=== PATIENT | male | born 1940 | race Caucasian/White ===

== ENCOUNTER 2017-05-22 21:12 | Inpatient (IN) | payer MEDICARE ==
[~2017-05-22] VITALS: Ht 188 cm; Wt 68.0 kg
--- NOTE | ~2017-05-22 | CO ---
ADMIT: 05/22/2017 RM/LOC: 423 [facility] MR#: [id number] [address] [address] ELIZABETH RUVALCABA [address] [place] [address] Consultation SEX: M AGE: 76 : 1940 DATE OF CONSULTATION: 05/24/2017 ATTENDING PHYSICIAN: Xiomara Sanchez CONSULTING PHYSICIAN: Zeynep Hills MD REASON FOR CONSULTATION: Stroke alert. HISTORY OF PRESENT ILLNESS: Mr. Fahad Ruvalcaba is a 76-year-old gentleman who has been followed by the Teleneurology Service since May 22. He came into the hospital due to right-sided weakness involving the leg, more so than the arm and has since had a stroke workup revealing left-sided parietal infarct that was acute on MRI scan. His stroke evaluation included MRI of the brain that confirmed the left parietal infarct and echocardiogram with a normal EF and a positive bubble study. Ultrasound of the carotid artery without evidence of critical stenosis. He had been taking aspirin prior to his hospitalization and Plavix has been recommended for him as part of his secondary stroke prevention. He has been undergoing physical, occupational, and speech therapy in anticipation of rehab. This afternoon was noted to be more somnolent than usual. A stroke alert was called due to the decrease in his mental status, and he was taken for CAT scan of the brain which confirmed evolving stroke in the left parietal region concordant with the MRI scan of the brain. No acute hemorrhage was seen. The patient required Ativan for the CT scan and therefore on arrival back to the room and my examination, he was somnolent and unable to participate fully in the physical exam. PHYSICAL EXAMINATION: NIH Stroke Scale was performed and is limited due to the mental status but is as follows. 1. Level of consciousness. a. He required repeated stimulation to arouse. b. Unable to answer month and age correctly. c. Unable to perform or follow commands. 2. Ocular movements appeared normal. 3. No blink to threat and normal visual stephens. 4. There is no apparent facial asymmetry. 5. Generalized weakness in the bilateral upper extremities, right side has more tone than the left side. 6. No effort against gravity in the bilateral lower extremities. 7. Ataxia is unable to be tested. 8. Sensation appears to be normal as he withdraws. 9. Unable to assess language. 10.He does not speak. 11.No apparent extinction. The total NIH stroke scale of 21. Most of which is related to his decreased mental status. ASSESSMENT AND PLAN: A 76-year-old gentleman with left parietal infarct. Plan at this point would be to continue secondary stroke prevention as he is not a candidate for acute intervention for either t-PA or thrombectomy as he ADMIT: 05/22/2017 RM/LOC: 423 [facility] MR#: [id number] [address] [address] [place] [address] Consultation SEX: M AGE: 76 : 1940 had a stroke 2 days ago and therefore the contraindication. I recommend ruling out any metabolic derangements or infections given his poor mental status and his failed barium swallow with some aspiration. Secondary stroke prevention should continue with aspirin and Plavix. Holter monitoring was also recommended to rule out a cardiac source of the thrombus. He should have statin as well for secondary stroke prevention. Normotension and euglycemia is recommended as well. Ongoing physical, occupational, and speech therapy is also recommended, and he will likely need rehabilitation for his baseline right hemiparesis. Thank you very much for allowing us to participate in the care of this patient. No further inpatient Neurology recommendations at this point. If there are any other questions, please do not hesitate to call us back. Zeynep Hills MD/ cory JOB #: [id number] CC: Xiomara Sanchez, Attending Physician David Jiménez, Family Physician
--- NOTE | ~2017-05-22 | ECH ---
Transthoracic Echocardiography Report (TTE) Demographics Patient Name ELIZABETH PEDRO Date of Study 05/23/2017 Patient Number [id number] Visit Number [id number] Date of 1940 Room Number 423 Accession Number [id number] Gender Male Age 76 year(s) Referring Daniel Solano [employer] Seble Winston Physician RDCS Physician Interpreting King Humble Alejandra MD Mechanical Engineering Teacher Physician Supervising Ordering Physician Daniel Solano MD/REAP Nurse [employer] Teacher Conclusions Contractility Score Summary Normal Left Ventricular contractility was noted. Summary Technically adequate exam. The estimated left ventricular ejection fraction is 55-60%. The interatrial septum appears aneurysmal. Informed consent was obtained, bubble study was done, bubbles crossed to the left atrium suggesting a PFO or ASD. There is mild to moderate aortic regurgitation by color Doppler. The aortic root appears moderately dilated. The maximum diameter measures 4.6 cm. The ascending aorta appears moderately dilated. The maximum diameter measures 4.6 cm. Procedure Type of Study TTE procedure:Echo Complete SF. Procedure Date Date: 05/23/2017 Start: 11:30 AM Technical Quality: Adequate visualization Indications:CVA, Diabetes and Hypertension. Appropriate Use Criteria: 9 Height: 74 inches Weight: 182 pounds BSA: 2.09 m Rhythm: Sinus bradycardia HR: 89 bpm BP: 164/89 mmHg M-Mode/2D Measurements LV Diastolic Dimension: 5.41 cm LV Systolic Dimension: 4.7 cm LV Septum Diastolic: 0.67 cm LV PW Diastolic: 0.77 cm AO Root Dimension: 4.63 cm Cardiac Output: 9.37 l/min LA Dimension: 3.2 cm Cardiac Index: 4.48 l/min*m RV Diastolic Dimension: 3.05 cm LA volume index: 23 ml/m LVOT: 2.41 cm LVOT VTI: 23.09 cm RV Base: 2.4 cm LV Stroke volume: 105.28 ml RV Mid: 1.7 cm LV Stroke volume index: 50.37 ml/m TAPSE: 1.9 cm TDI-S': 11 cm/s Doppler Measurements AV Peak Velocity: 1.13 m/s MV Peak E-Wave: 1.11 m/s AV Peak Gradient: 5.1 mmHg AV Mean Gradient: 2.88 mmHg MV P1/2t: 35.8 msec LVOT Peak Velocity: 1.22 m/s AV Area (Continuity):4.6 cm AV P1/2t: 346.1 msec MV Area (PHT): 6.15 cm PV Peak Velocity: 0.75 m/s PV Peak Gradient: 2.24 mmHg E' Septal Velocity: 0.06 m/s A' Septal Velocity: 0.13 m/s E' Lateral Velocity: 0.06 m/s A' Lateral Velocity: 0.15 m/s RA Area: 9.01 cm Findings Left Ventricle Normal left ventricle size and function. Diastolic function indeterminate due to patient's arrhythmia. Right Ventricle Normal right ventricle structure and function. Left Atrium Normal left atrial size. The interatrial septum appears aneurysmal. Informed consent was obtained, bubble study was done, bubbles crossed to the left atrium suggesting a PFO or ASD. Right Atrium Normal right atrial size. Mitral Valve Normal mitral valve structure and function. Trivial mitral regurgitation by color Doppler. Aortic Valve The aortic valve is mildly sclerotic. There is mild to moderate aortic regurgitation by color Doppler. Tricuspid Valve Normal tricuspid valve structure and function. Trivial tricuspid regurgitation by color Doppler. Insufficient jet to calculate pulmonary pressures. Pulmonic Valve The pulmonic valve is not well visualized. Pericardial Effusion No evidence of pericardial effusion. Miscellaneous The aortic root appears moderately dilated. The maximum diameter measures 4.6 cm. The ascending aorta appears moderately dilated. The maximum diameter measures 4.6 cm. Pleural Effusion No evidence of pleural effusion. Contractility Score LV regional wall motion:(0-Non visualized 1-Normal 2-Hypokinesis 3-Akinesis 4-Dyskinesis 5-Aneurysm) Signature
--- NOTE | 2017-05-24 22:23 | ER ---
ADMIT: 05/22/2017 RM/LOC: 423 [facility] MR#: [id number] [address] [address] ELIZABETH PEDRO [address] [place] [address] Emergency Room Report SEX: M AGE: 76 : 1940 DATE: 05/22/2017 HISTORY OF PRESENT ILLNESS: The patient is a 76-year-old male with a past medical history of diabetes and alleged hypertension, came to the ER with chief complaint of slurred speech since 5 p.m. Allegedly, the patient was at home, and he picked up his from work at 4 p.m., and he was okay, but at 5:00 p.m., he began slurring speech, and the symptom has not improved or got worse since then. In the ER, the patient had mild right lower facial drooping with slurred speech, the patient is understandable and could answer the question, alert, oriented to person, place, and time. There are no signs of trauma. The patient denies any trauma. Fingerstick blood sugar was 156. Code stroke was activated. CT scan of the head was negative for any acute bleeding. In the primary physical examination, NIHS score of the patient was 2 for minor facial palsy and dysarthria. PHYSICAL EXAMINATION: GENERAL: The patient was hypertensive with systolic blood pressure of 180s, in no acute distress. Alert and oriented to person, place, and time. HEAD AND NECK: Pupils are 3 mm, reactive to light bilaterally, normal extraocular movement, mild right facial drooping on the lower side with sparing of the forehead. Sensory is grossly normal, and motor other than the face is grossly normal. The patient has mild dysarthria, but has no dysphagia. Cerebellar exam was also [id number] was very slow bilaterally. Other than that, the rest of the neural exam was negative. There is no bruit on the neck. Trachea midline. CHEST: Clear bilaterally. . HEART: Normal S1, S2 without any murmurs or gallops. ABDOMEN: Soft. There is no swelling or tenderness in extremities. There are no skin rashes. LABORATORY DATA: Lab works were noncontributory. Teleneurologist, Dr. Bass believes that it could be a subcortical lacunar stroke and advised that NIHS score is very low and symptoms are very minimal, and we are out of the window, and there is no need for tPA. Per advice of Dr. Bass, the patient was admitted for further followups and treatments of stroke. The patient received aspirin 324 mg p.o. in the ER. Luis Felipe Fong MD/ cory JOB #: [id number] CC: Xiomara Sanchez MD, Attending Physician David Jiménez DO, Family Physician
--- NOTE | 2017-05-26 03:51 | HP ---
ADMIT: 05/22/2017 RM/LOC: 423 [facility] MR#: [id number] [address] [address] ELIZABETH RUVALCABA [address] [place] [address] History and Physical SEX: M AGE: 76 : 1940 DATE OF SERVICE: 05/23/2017 CHIEF COMPLAINT: Slurred speech. HISTORY OF PRESENT ILLNESS: Mr. Ruvalcaba is a pleasant 76-year-old white male, who states that this afternoon around 4:00, he was feeling very tired. His states he came to pick her up from work, and at that time, he was unable to drive home. Later on this evening, she states they were sitting on the couch watching television around 8 to 9 p.m. when she noticed he was drooling. When she tried talking to him, she noticed that his speech was slurred. At that point, she decided to call family to help bring him to the Emergency Department. Upon helping him up to the car, she noticed he was having difficulty standing and walking. He denies any pain or headaches. He is having some sensation changes to his right side as well as right-sided weakness to his arm and leg. He states he has had similar episode in the spring, approximately 6 months ago. Denies being told that he ever had a stroke. He does have history of diabetes and hypertension and does take an aspirin daily. Upon arrival to the Emergency Department, stroke alert was called and the patient was seen by Teleneurology. Initial blood pressure was 192/118. NIH stroke scale performed with a score of 5 for a right upper and lower drift, facial droop, dysarthria. Noncontrast head CT was performed, was negative for hemorrhage, although did show potential subcortical lacunar left stroke. Blood glucose was 156. The patient did also have hyponatremia with a sodium of 131. PAST MEDICAL HISTORY: Diabetes mellitus type 2, hypertension, GERD. PAST SURGICAL HISTORY: Left hip replacement in 2014, tonsillectomy. FAMILY HISTORY: Maternal grandmother, history of cancer, unknown type. The patient is unsure of any other family history. SOCIAL HISTORY: 1. Marital status, . 2. Tobacco use, denies. 3. Alcohol, denies. 4. Drugs, denies. ALLERGIES: NO KNOWN ALLERGIES. MEDICATIONS: 1. Metformin b.i.d. 2. Losartan at bedtime. 3. Aspirin 81 mg daily. 4. Acid tractor technician, the patient is unsure of name. REVIEW OF SYSTEMS: Complete review of systems obtained and negative except ADMIT: 05/22/2017 RM/LOC: 423 [facility] MR#: [id number] [facility] [address] [address] [facility], ELIZABETH [address] [place] [address] History and Physical SEX: M AGE: 76 : 1940 for those reviewed per HPI. PHYSICAL EXAMINATION: GENERAL: The patient appears stated age, is alert and oriented x4. The patient is well developed, well nourished, healthy appearing, is in no apparent distress, is resting comfortably in bed. is at bedside. SKIN: Warm and dry without any lesions. Does have some redness to bilateral feet with some scaly flaky skin to bilateral feet. No open sores or ulcerations visible. HEENT: Head is normocephalic, atraumatic. Pupils are 3 mm and reactive to light bilaterally. Extraocular movements are intact. No scleral icterus. Mucous membranes are pink and moist. No nasal discharge. The patient does have right facial droop. Does have [id number] dysarthria. NECK: Supple and nontender. No lymphadenopathy. No carotid bruits. No JVD or palpable masses. Trachea is midline. HEART: Regular rate and rhythm. Grade 2 to 3 systolic murmur, heard best over right second ICS. LUNGS: Clear throughout. Respirations are equal and nonlabored. Normal work of breathing. No accessory muscle use. No rhonchi, crackles, or wheezes. ABDOMEN: Soft and nontender. No guarding with palpation. Bowel sounds are positive x4 quadrants. EXTREMITIES: No clubbing or cyanosis. Pulses are 2+ to bilateral upper and lower extremities. No varicosities seen. No edema. NEURO: Weakness to right upper and lower extremities. Decreased sensation to the right upper and lower extremities. Also has a right facial droop. PSYCH: He is alert and oriented. Intact recent and remote memory. Normal judgment and insight. LABORATORY DATA: 1. CBC: WBC is 6.0, hemoglobin 14.0, hematocrit 38.3, platelets 211. 2. Basic metabolic panel: Sodium 131, potassium 4.4, chloride 99, carbon dioxide 23, BUN 21, glucose 145, creatinine 1.2, calcium 9.2, BNP 57, glucose 156. 3. PT 10.5, INR 1.01, PTT 32.2. 4. Urinalysis: Negative for infection. RADIOLOGY REPORT: A CT without contrast showed advanced age-related changes, showed a possible acute ischemia in the right basal ganglia. No midline shift. No evidence of intracranial hemorrhage. Did also show a low-grade ethmoid sinus disease. ASSESSMENT AND PLAN: 1. Cerebrovascular accident versus transient ischemic attack. The patient admitted to PCU inpatient for TIA, non t-PA. Per Neurology recommendations, we will continue the patient on his home aspirin 325 mg daily. Neurology will continue to follow via Teleneurology consultation. We will do cerebrovascular workup including MRI and echocardiogram. Also get a lipid profile. We will have PT, OT, and Speech Therapy see the ADMIT: 05/22/2017 RM/LOC: 423 [facility] MR#: [id number] [address] [place] [id number] ZERR, ELIZABETH [address] [place], [place] [address] History and Physical SEX: M AGE: 76 : 1940 patient. We will start on statin therapy as he is not currently on anything at home. 2. Dysphagia. We will have full eval done by Speech Therapy. We will keep head of bed greater than 30 degrees. We will hold oral medications until seen by Speech. 3. Hyponatremia. This is mild. We will repeat labs in the a.m. We will monitor. The patient will get normal saline at 75 mL an hour for fluid replacement. 4. Diabetes mellitus. Metformin held. The patient was started on a.c. and at bedtime blood sugar checks as well as sliding scale insulin. We will check hemoglobin A1c. 5. History of hypertension. Vital signs per unit protocol. The patient was hypertensive in the Emergency Department. Upon arrival to the floor, blood pressure had come down nicely. The systolic was down to 165. We will continue to monitor. Nursing to notify if systolic is greater than 185. 6. Gastroesophageal reflux disease. The patient was started on Protonix daily. Also keep the head of bed elevated. 7. Deep venous thrombosis prophylaxis. The patient was started on Lovenox and SCDs. Ame Baker APRN / Xiomara Sanchez MD / cory JOB #: [id number] CC: Xiomara Sanchez, Attending Physician David Jiménez, Family Physician
--- NOTE | 2017-05-28 17:07 | PR ---
ADMIT: 05/22/2017 RM/LOC: 423 [facility] MR#: [id number] [address] [address] [facility], [place] [address] [place] [address] Progress Note SEX: M AGE: 76 : 1940 DATE: 05/23/2017 Asked to see this patient in Telemedicine followup. The followup is performed with the assistance of medical staff at bedside. SUBJECTIVE: The patient is seen in followup for stroke evaluation. The patient came in as a stroke alert yesterday with right-sided weakness, garbled speech. MRI of the brain confirmed left parietal infarct. Echocardiogram with positive bubble study, normal EF. Carotid ultrasounds with no critical stenosis. The patient states prior to hospitalization, he was taking a baby aspirin daily as part of his medical regimen. OBJECTIVE: VITAL SIGNS: Stable. GENERAL: He is awake, alert, and in no acute distress. Well-nourished individual. MENTAL STATUS: Oriented x3. Mild aphasia. CRANIAL NERVES: II through XII grossly intact. The patient with right nasolabial fold flattening. Moderate dysarthria. MOTOR: The patient with marked paresis on the right side with 2 to 3/5 right upper and lower extremity strength. COORDINATION: Intact on the left. SENSORY: Intact on the left. NIH stroke scale 10. IMPRESSION: Left parietal stroke. PLAN: At this time, recommend keeping the patient on aspirin, low dose with ADMIT: 05/22/2017 RM/LOC: 423 [facility] MR#: [id number] [address] [address] ZERR, ELIZABETH [address] [place] [address] Progress Note SEX: M AGE: 76 : 1940 additional Plavix 75 mg daily. Recommend Holter monitoring. Keep on statin for secondary stroke prevention as well as optimizing the patient's blood pressure. Outpatient followup with PCP, Cardiology as well as Neurology next month. The patient will need in terms of rehabilitation for right hemiparesis. No further recommendations on an inpatient basis. If there are any questions or concerns, please not hesitate to give us a call. Marli Emmanuel DO/ cory JOB #: [id number] CC: Xiomara Sanchez, Attending Physician David Jiménez, Family Physician
--- NOTE | 2017-05-29 08:41 | CO ---
ADMIT: 05/22/2017 RM/LOC: [address] [facility] MR#: [id number] [address] [facility] [address] [place] [id number] ELIZABETH RUVALCABA [address] [place] [address] Consultation SEX: M AGE: 76 : 1940 DATE OF CONSULTATION: 05/28/2017 ATTENDING PHYSICIAN: Xiomara Sanchez CONSULTING PHYSICIAN: Marilin Pascual APRN REASON FOR CONSULTATION: For review of goals of care and expectations of healthcare as well as symptom management. TIME IN: 1200 hours. TIME OUT: 1250 hours. HISTORY OF PRESENT ILLNESS: Mr. Ruvalcaba is a very pleasant 76-year-old male, who was brought in to the emergency room by his on the 22 of May. On the , he was feeling very fatigued around 4 p.m. His stated that he went to pick her up from work and he was unable to drive home after he had picked her up. Later on in the evening, she explained that they were sitting on the couch about 8 or 9 p.m. when she noticed that he was drooling. He was brought into the Emergency Department. He also was having some right sided weakness was unable to walk at that time. The ER did call stroke alert on him and he did get a CT scan of his head which showed that he had advanced age-related change with extensive low density in the deep white matter. No hemorrhage was seen and there was concern for acute ischemia. He was then admitted to the 4th floor for further evaluation. Teleneuro was consulted and had met with the patient. Then,on the 24 of May he had an additional mental status change with increased drowsiness and he did have repeat CT scan done at that time. The repeat scan showed that he had a small left periventricular parietal area of ischemia which was expansion from the previous area of stroke. Physical Therapy and Occupational Therapy have seen this patient as well. Throughout the patient's hospital stay, his swallowing ability has waxed and waned and Speech Therapy has had the patient as n.p.o. at times. He did at one point, have an NG tube in through which he was receiving tube feeds per Nutrition's recommendations. Over the weekend he did pull out his NG twice and then had stated at one point to the speech therapist that he did not want a feeding tube. Today the patient is to undergo an MRI of his head and Speech Therapy has also seen the patient, and has recommended honey thick liquids and pureed diet. Due to the patient's complexity and need for a possible PEG, supportive care consultation was requested. Symptomatically, currently the patient has no acute complaints. He denies any nausea, vomiting, shortness of breath, chest pain, diarrhea, or constipation. The patient is currently listed in the chart as a full code. He does have paper work delineating healthcare power of city attorney. His , Zenaida Ruvalcaba, is to be his healthcare power of city attorney. Her phone #[phone]. Zenaida's successor for healthcare power of city attorney would be Leticia Barahona, her phone #[phone] and [phone]. The patient also has paperwork listing that he does not want his life to be prolonged if to a reasonable degree of medical certainty his situation is hopeless. He has also delineated that he is not to ADMIT: 05/22/2017 RM/LOC: [address] [facility] MR#: [id number] [address] [place] [id number] [place] [address] Consultation SEX: M AGE: 76 : 1940 receive any blood transfusions. PAST MEDICAL HISTORY: Type 2 diabetes mellitus, hypertension, GERD. He also had a similar episode with the weakness in the spring about 6 months ago. He denies that he has ever been told that he had a stroke. SOCIAL HISTORY: The patient is . He is a [employer] for church affiliation. He denies alcohol use. Denies tobacco use and denies any illicit drugs. FAMILY HISTORY: Maternal grandmother had a history of cancer with an unknown type. ALLERGIES: NO KNOWN ALLERGIES. MEDICATIONS: Please refer to the chart for accurate dosages and routes. Current medications include. 1. Protonix. 2. Aspirin. 3. Apresoline. 4. Colace. 5. Catapres. 6. Plavix. 7. Ativan. 8. Pravachol. 9. Lovenox. 10.NovoLog. 11.Normal saline. 12.Glutose. 13.Glucagon. 14.D5 NS. 15.D50. 16.Maalox. 17.Tylenol. 18.Nitrostat. FUNCTIONAL STATUS: Previously the patient had full mobility. He had no evidence of disease and was able to do normal activity. He was able to fully care for himself. His intake was normal and his LOC was full. His previous palliative performance scale is about 100%. Currently the patient does have reduced mobility. He is requiring max to assist. He is unable to do any work and has extensive disease. He is requiring considerably to mainly assistance. His intake is reduced and his LOC is full to confusion at times. His current palliative performance scale is about a 60-50%. REVIEW OF SYSTEMS: All review of systems were reviewed and negative except what was noted in the HPI. ADMIT: 05/22/2017 RM/LOC: [address] [facility] MR#: [id number] [address] [phone] ELIZABETH RUVALCABA [address] [place], [place] [address] Consultation SEX: M AGE: 76 : 1940 PHYSICAL EXAM: GENERAL: The patient appears his stated age. He is alert and oriented x3. He is well developed, well nourished, and healthy appearing. He is in no acute distress and is resting comfortably in his bed. His is currently at bedside. VITAL SIGNS: Temperature 97.9, pulse 82, respirations 16, blood pressure 143/91, and O2 saturations are 96% on room air. HEENT: Head is normocephalic and atraumatic. Pupils are 3 mm, brisk and reactive to light. Extraocular movements are intact. No scleral icterus. Mucous membranes are pink and moist with fair dentition. The patient does have right facial droop and has ujng-vz-krlassxc dysarthria. NECK: Supple and nontender. Trachea is midline. LUNGS: Lung sounds are clear to auscultation bilaterally throughout. Respirations are equal and nonlabored. HEART: Regular rate and rhythm. He does have a systolic murmur. ABDOMEN: Soft and nontender. No guarding with palpation. Bowel sounds are present in all 4 quadrants. His last bowel movement was May 27. EXTREMITIES: No clubbing or cyanosis. Pulses are 2+ to bilateral upper and lower extremities. No varicosities were seen. No edema. NEUROLOGICAL: He does have weakness to his upper right and lower extremities. He also has decreased sensation to the right upper and lower extremities. He has right facial droop. His left side is strong and he has no neuro deficits. PSYCH: He is alert and oriented. He is calm and cooperative during exam. His judgment and insight are normal. DIAGNOSTICS: As discussed previously, he did have a head CT on the and then another one on the and the . The head CTs were showing that he has a left periventricular ischemic process which is visually larger on the scan versus the previous exams. He also has extensive bilateral deep white matter change and moderate atrophy. He is currently getting an MRI of his brain that is without contrast. He has also had a chest x-ray that showed his previous NG was in satisfactory position, but no signs of pneumonia. He also did have a carotid ultrasound done on the and it showed mild intimal thickening of both carotid systems, but no findings to suggest hemodynamically significant stenosis on the left or right. LABORATORY VALUES: Include sodium 139, potassium 3.6, chloride 110, CO2 of 19, urea 14, glucose 157, creatinine 0.9. Albumin is 3.0. GFR is 82. WBC 7.3, hemoglobin 13.9, hematocrit 38.5, platelet 198. IMPRESSION: 1. Physical debility. 2. Fatigue. 3. Dysphagia. 4. Palliative care. 5. 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 6. Weakness. 7. Hypertension. 8. Type 2 diabetes mellitus. ADMIT: 05/22/2017 RM/LOC: [address] [facility] MR#: [id number] [address] [address] [facility] [address] [place] [address] Consultation SEX: M AGE: 76 : 1940 9. Full code. PLAN: I did meet with the patient and his at bedside to discuss his goals of care, a possible PEG tube, and introduced them into the role of supportive care. I was able to discuss the PEG tube in great depth with the patient and . They both verbalized understanding and would like more time to discuss it. The patient currently is cleared by Speech for pureed and honey thick diet but are aware that this could change. The patient states that at this time, he would not want another NG tube due to comfort but would consider getting a PEG tube placed if he needed it. He states his ultimate goal is to get home. In the mean time, he is aware that he will need to go to a rehab facility for strengthening. I did briefly review with the patient and his his code status and his advanced care planning paperwork. I reviewed the burden versus the benefit of resuscitation. The patient states at this time that he would like to remain a full code. I reviewed with the patient also that his , Zenaida Ruvalcaba, is to be his healthcare power of city attorney with Leticia Barahona is his successor. I will continue to follow along in this very kind patient's care and I am happy to assist with needs as they arise. I did give much support to the patient and his as the patient was tearful discussing long-term goal planning. The patient was seen in collaboration with Dr. Sneed who agrees with the above assessment, discussion, and plan. I would like to thank Dr. Sanchez for the invitation to participate in this patient's care. Total consultation time was 50 minutes from 1200 hours 1250 hours with [id number] time of 1205 hours to 1245 hours. Greater than 50% of this time was spent at bedside counseling and educating the patient and family concerning goals and options of care. Marilin Pascual APRN/ cory JOB #: [id number] CC: Xiomara Sanchez, Attending Physician David Jiménez, Family Physician
--- NOTE | 2017-06-01 07:47 | CO ---
ADMIT: 05/22/2017 RM/LOC: [address] [facility] MR#: [id number] [address] [address] ELIZABETH RUVALCABA [address] [place] [address] Consultation SEX: M AGE: 76 : 1940 DATE OF CONSULTATION: 05/22/2017 ATTENDING PHYSICIAN: Xiomara Sanchez CONSULTING PHYSICIAN: Jimbo Bass MD CHIEF COMPLAINT/REASON FOR CONSULTATION: Stroke alert. HISTORY OF PRESENT ILLNESS: Mr. Ruvalcaba is a 76-year-old gentleman, who said somewhere between 4:00 and 5:00 this afternoon, he noticed some fatigue and slurred speech. This evolves including right-sided weakness involving legs, slightly more so than the arm. He is having difficulty standing and walking. Because of these symptoms, he came to the ER at approximately 9:10 p.m. He said he had similar symptoms this past spring, but was told it was not a stroke but did have a stroke years ago. He does take aspirin daily. PAST MEDICAL HISTORY: Includes diabetes, hypertension, history of stroke/TIA. PHYSICAL EXAMINATION: VITAL SIGNS: On evaluation, blood pressure 192/118. NEUROLOGIC: Using NIH stroke scale: Level of consciousness shows the patient awake and alert with a score of 0. Level of consciousness questions, both answered correctly with a score of 0. Level of consciousness commands, both followed correctly with a score of 0. Extraocular movements are intact with a score of 0. Visual stephens are full with a score of 0. Facial movements show verr-wo-mgtgubjw right upper motor neuron facial droop with a score of 1. Motor testing the upper extremities, there is drift in the right upper extremity with a score of 1. Motor testing in the lower extremities shows drift to the bed in the right lower extremity with a score of 2. Coordination is intact to zdnlrj-vs-fqto and vvgn-jf-mdvo relative to weakness with a score of 0. Sensation is intact and symmetric in bilateral upper and lower extremities with a score of 0. Language testing shows normal naming, normal reading, normal fluency with a score of 0. Speech shows a bwtz-rl-rrwjttnf dysarthria with a score of 1. Extinction is absent to double simultaneous stimulation with a score of 0. NIH stroke scale total of 5. LABORATORY DATA: Reviewed. The patient has blood glucose of 156. A noncontrast head CT performed in the ER has been reviewed, showing no evidence of mass, mass effect, hemorrhage, or old ischemic changes. There is age- related atrophy and white matter disease. IMPRESSION AND RECOMMENDATIONS: Mr. Ruvalcaba is a 76-year-old gentleman with acute right-sided weakness with dysarthria. There is no aphasia or any other cortical localizing signs. This appears to be a subcortical/lacunar left ADMIT: 05/22/2017 RM/LOC: [address] [facility] MR#: [id number] [address] [place] [id number] [place] [address] Consultation SEX: M AGE: 76 : 1940 brain stroke. Because he is presenting over 5 hours since the last time he was normal, he is not a candidate for IV t-PA. We discussed how the risk of bleeding complications beyond the 4-1/2-hour window outweighs the potential benefits. He is not a candidate for neuro intervention as he has no cortical localizing signs to suggest a large vessel occlusion. He will need admission for cerebrovascular workup. In summary, I recommend: 1. Okay to continue aspirin 325 daily. 2. Dysphagia screen. 3. DVT prophylaxis. 4. Admission to Hospitalist Service, Neurology consult. 5. Cerebrovascular workup to include MRI of the brain without contrast, 2D echocardiogram, carotid ultrasound, lipid profile. 6. PT, OT, speech and language pathology evaluations. The case was discussed in detail with the ED physician. Please feel free to contact me with any questions or concerns. Thank you for this consultation. Jimbo Bass MD/ cory JOB #: [id number] CC: Xiomara Sanchez, Attending Physician David Jiménez, Family Physician
== END 2017-05-29 15:00 | disposition short-term general hospital (02) | DRG 65 ==
LOC: ER 21:12 → 4PCU 22:10
PROVIDERS: ADMIT Internal Medicine
PROC: 3E0G76Z Introduction of Nutritional Substance into Upper GI, Via Natural or Artificial Opening (ICD-10-PCS; principal; 2017-05-25)
DX: I63.9 Cerebral infarction, unspecified (principal); E87.1 Hypo-osmolality and hyponatremia; E46 Unspecified protein-calorie malnutrition; G81.91 Hemiplegia, unspecified affecting right dominant side; R13.10 Dysphagia, unspecified; E87.6 Hypokalemia; G81.94 Hemiplegia, unspecified affecting left nondominant side; E78.5 Hyperlipidemia, unspecified; R15.9 Full incontinence of feces; R32 Unspecified urinary incontinence; E11.9 Type 2 diabetes mellitus without complications; I10 Essential (primary) hypertension; R29.810 Facial weakness; R47.81 Slurred speech; R47.1 Dysarthria and anarthria; K21.9 Gastro-esophageal reflux disease without esophagitis; R29.705 NIHSS score 5; Q21.1 Atrial septal defect; Z86.73 Personal history of transient ischemic attack (TIA), and cerebral infarction without residual deficits; Z87.891 Personal history of nicotine dependence; Z79.84 Long term (current) use of oral hypoglycemic drugs